=== PATIENT | female | born 1990 | race Caucasian/White ===

== ENCOUNTER 2019-02-06 19:27 | Emergency (ER) | payer OTHER ==
[2019-02-06] MEDS ORDERED: NS 1,000 ML IV ONE (19:49)
[2019-02-06] MEDS ORDERED: IOPAMIDOL (ISOVUE-300) 100 ML BTL ONE (19:58)
--- NOTE | 2019-02-06 20:50 | EDPHY ---
General Time Seen by Provider: 02/06/19 19:35 Narrative: CLINICAL IMPRESSION: Abdominal pain, incidental breast mass ASSESSMENT/PLAN: 28-year-old female presents to the emergency department 2 weeks after blunt force abdominal trauma during a roller [employer] game with persistent but improving abdominal discomfort. No reported change in bowel habits, melena, bloody stool , nausea, vomiting, abdominal distension, hematuria. Patient is tender on exam with no focal peritoneal findings or bruising. CT scan read by Radiology with no solid organ injury, intra-abdominal hematoma, or other acute process identified. Incidentally, a right mid breast mass was found on CT. I relayed these findings to the patient and encouraged her to follow up for an outpatient ultrasound. Gynecology referral provided. Patient reports not having felt a breast mass. We discussed supportive care at home for her abdominal pain, PCP follow-up and warning signs return to ED sooner outlined and discharge. DIFFERENTIAL DX: Abdominal pain includes but not limited to acute appendicitis, diverticulitis, cholecystitis, pancreatitis, SBO, gastroenteritis, constipation ED PROCEDURES: See lab and/or imaging results below ED COURSE: 8:45 p.m.: Discussed CT results with Dr. Em. No evidence of abdominal wall hematoma, solid organ injury, or bleeding. Incidentally, patient has a right mid breast mass that will need further evaluation by ultrasound. I discussed these results with the patient and she has requested a gynecology follow-up which I will provide and discharge. CHIEF COMPLAINT: Abdominal pain after injury 2 weeks ago HPI: 28-year-old otherwise healthy female presents to the emergency department with 2 weeks of generalized lower abdominal pain. Patient participates in [email or web address], reports that she was hit on the right lower abdomen approximately 3 weeks ago by a teammate and that pain resolved. She was then participating in a competition and was hit rather forcefully in the umbilical region by another player's hip 2 weeks ago. She states the pain was bad enough that she had to stop playing for short period of time but was then able to return [facility]. Since that time she has been taking it easy, modifying her normal exercise routine, and has not been skating. She reports persistent although improved lower abdominal discomfort and cramping. She denies . No visible hematuria. No flank pain. She reports some heartburn symptoms which she normally does not suffer from. No vomiting. No abdominal distension. No reported history of gynecologic disease or prior abdominal wall surgery. PAST MEDICAL HISTORY: None reported See nurse/triage notes for additional history if applicable Pertinent Past Surgical History: None reported Family History: Noncontributory Social History: Otherwise healthy, nonsmoker REVIEW OF SYSTEMS: All other systems negative Constitutional: No fever, no chills, appetite change. Cardiovascular: No chest pain, no palpitations. Respiratory: No cough, no shortness of breath. Gastrointestinal: Positive for abdominal pain, no vomiting, diarrhea. Genitourinary: No hematuria, dysuria, flank pain, pelvic pain Musculoskeletal: No back pain, joint swelling, joint pain, myalgias. Skin: No rashes, color change. Neurological: No headache, dizziness, weakness. PHYSICAL EXAM: General Appearance: Alert, oriented, appropriate, cooperative, NAD, well hydrated, non-toxic appearing, moderately hypertensive, no hypoxia. Respiratory: There are no retractions, lungs are clear to auscultation. Cardiac: Regular rate and rhythm, no murmurs or gallops. Gastrointestinal: [Abdomen is soft, generalized tenderness to palpation of lower abdomen with no focal peritoneal findings, bowel sounds normal, no masses/ hernia, no rigidity, no epigastric tenderness Neurological: [ Alert and oriented x 3 Skin: Warm, dry, no rashes, no nodules on palpation. MEDICAL DECISION MAKING: Patient was seen independently. Secondary supervising physician at time of evaluation was Dr. Day . Diagnosis: Abdominal pain, incidental breast mass. New, requires workup Summary: See Assessment and Plan for summary of ED visit Independent visualization of images, tracing, or specimens: Yes. Decision to obtain medical records or history from someone other than the patient: No Review / Summarize previous medical records: None available Discussed patient with another provider: Radiology Patient Progress: Improved, stable for discharge. - Diagnostics Imaging Results: Imaging Impressions Abdomen CT 02/06/19 19:49 Impression: 1. 2.0 cm rounded solid-appearing mass in the lower medial quadrant of the right breast. Recommend focused sonography for further evaluation. 2. Otherwise negative CT examination of the abdomen and pelvis with contrast. Results called to Chris Waldron PA-C, at 8:45 PM. - History Smoking Status: Never smoked - Objective Vital Signs: Initial Vital Signs Temperature (C) 36.9 C 02/06/19 19:29 Heart Rate 65 02/06/19 19:29 Respiratory Rate 17 02/06/19 19:29 Blood Pressure 143/84 H 02/06/19 19:29 O2 Sat (%) 97 02/06/19 19:29 O2 Delivery Mode Room Air Allergies/Adverse Reactions: No Known Allergies Allergy (Unverified 02/06/19 19:31) Home Medications: Medication Instructions Recorded NK [No Known Home Meds] 02/06/19 Laboratory Results: 02/06/19 02/06/19 02/06/19 20:03 19:35 19:35 POC Hgb 16.7 gm/dL H gm/dL (12.6-16.3) POC Hct 49 % H % (38-47) POC Sodium 143 mEq/L mEq/L (135-145) POC Potassium 3.3 mEq/L mEq/L (3.3-5.0) POC Chloride 102 mEq/L mEq/L (97-110) POC Total CO2 25 mEq/L mEq/L (22-31) POC BUN 11 mg/dL mg/dL (7-23) POC Creatinine 1.0 mg/dL mg/dL (0.6-1.0) POC Glucose 92 mg/dL mg/dL (70-100) Urine Color PALE YELLOW Urine Appearance CLEAR Urine pH 7.0 (5.0-7.5) Ur Specific [place] 1.004 (1.002-1.030) Urine Protein NEGATIVE (NEGATIVE) Urine Ketones NEGATIVE (NEGATIVE) Urine Blood NEGATIVE (NEGATIVE) Urine Nitrate NEGATIVE (NEGATIVE) Urine Bilirubin NEGATIVE (NEGATIVE) Urine Urobilinogen NEGATIVE EU EU (0.2-1.0) Ur Leukocyte Esterase NEGATIVE (NEGATIVE) Urine Glucose NEGATIVE (NEGATIVE) Urine Test NEGATIVE Medications Given: Discontinued Medications Sodium Chloride (Ns) 1,000 mls @ 0 mls/hr IV EDNOW ONE; Wide Open PRN Reason: Protocol Stop: 02/06/19 19:50 Last Admin: 02/06/19 20:01 Dose: 1,000 mls Point of Care Test Results: Chemistry 02/06/19 20:03 POC Sodium 143 mEq/L mEq/L (135-145) POC Potassium 3.3 mEq/L mEq/L (3.3-5.0) POC Chloride 102 mEq/L mEq/L (97-110) POC Total CO2 25 mEq/L mEq/L (22-31) POC BUN 11 mg/dL mg/dL (7-23) POC Creatinine 1.0 mg/dL mg/dL (0.6-1.0) POC Glucose 92 mg/dL mg/dL (70-100) ISTAT H&H 02/06/19 20:03 POC Hgb 16.7 gm/dL H gm/dL (12.6-16.3) POC Hct 49 % H % (38-47) Departure - Departure Disposition: Home, Routine, Self-Care Clinical Impression: Breast mass, right Abdominal pain Qualifiers: Abdominal location: lower abdomen, unspecified Qualified Code(s): R10.30 - Lower abdominal pain, unspecified Condition: Good Instructions: Acute Abdominal Pain (ED), Breast Mass (ED) Additional Instructions: DISCHARGE INSTRUCTIONS FROM YOUR DOCTOR Thank you for visiting our emergency department today. You were treated by a physician design assistant today and your case was reviewed with our ED Attending physician. Please keep in mind that discharge from the emergency department does not mean that there is nothing wrong - it simply means that we have not identified an emergency condition that requires further evaluation or treatment in the hospital. You should always plan to follow up with primary care for re- evaluation of your condition in the next 2-3 days. If you have been referred to a specialist, please call as soon as possible (today or tomorrow) to schedule your follow up appointment at the appropriate time. URINE STUDIES ARE REASSURING WITH NO BLOOD OR EVIDENCE OF INFECTION. YOU ARE NOT . CT SCAN WAS READ BY THE RADIOLOGIST SHOWING NO EVIDENCE OF SOLID ORGAN INJURY, INTRA-ABDOMINAL BLEEDING, ABDOMINAL WALL HEMATOMA OR OTHER EVIDENCE OF TRAUMATIC INJURY. HOWEVER, INCIDENTALLY ON CT THE RADIOLOGIST DID SEE A 2 CM SOLID MASS IN THE RIGHT BREAST. IT IS RECOMMENDED THAT YOU HAVE AN ULTRASOUND OF THIS. BREAST ULTRASOUNDS ARE NOT ROUTINELY DONE IN THE EMERGENCY DEPARTMENT. PLEASE MAKE A FOLLOW-UP APPOINTMENT WITH HER PRIMARY CARE OR ADULT LITERACY TEACHER THIS WEEK AND THEY CAN HELP ARRANGE AN ULTRASOUND OUTPATIENT. MONITOR SYMPTOMS CLOSELY AT HOME. RETURN TO THE ED FOR SEVERE ABDOMINAL PAIN, DISTENTION OR BLOATING, FEVER OR CHILLS, VISIBLE BLOODY URINE, BLOODY STOOLS, OR ANY OTHER CONCERNS. People present with illnesses and injuries in different ways, and it is always possible that we have missed something. You may always return for re-evaluation if symptoms worsen or if they are not improving or if you develop new/different symptoms. Again, thank you for choosing our emergency department. We hope that you feel better. Referrals: NONE *PRIMARY CARE P,. [Primary Care Provider] - As per Instructions Sylvia Gaston, DO [Doctor of Osteopathy] - 1-2 days without fail
[2019-02-06 21:21] VITALS: BP 137/90
== END 2019-02-06 21:20 | disposition home or self-care (01) ==
DX: N63.14 Unspecified lump in the right breast, lower inner quadrant (principal); R10.30 Lower abdominal pain, unspecified; E86.9 Volume depletion, unspecified
CPT/HCPCS: 82435-PO; 82565-PO; 82947-PO; 84132-PO; 84295-PO; 84520-PO; 85014-ER; Q9967

== ENCOUNTER → 2019-02-17 | Outpatient (CLI) | payer OTHER | LOC: BMCIMAGING 10:36 | PROVIDERS: ATTEND Hospitalist | DX: N63.14 Unspecified lump in the right breast, lower inner quadrant (principal) ==